=== PATIENT | male | born 1960 | race Caucasian/White ===

== ENCOUNTER 2018-09-30 12:41 | Day surgery (SDC) | payer OTHER ==
[~2018-09-30] VITALS: Ht 170.2 cm; Wt 63.8 kg
[2018-09-30 13:48] VITALS: Ht 170.2 cm; Wt 63.8 kg
[2018-09-30] MEDS ORDERED: AMARYL (13:52)
[2018-09-30] MEDS ORDERED: FERROUS SULFATE (13:52)
[2018-09-30] MEDS ORDERED: METFORMIN (13:52)
[2018-09-30] MEDS ORDERED: LISINOPRIL (13:52)
[2018-09-30] MEDS ORDERED: ASA 81 (13:52)
[2018-09-30 13:54] VITALS: BP 175/84; PULSE 56; RESP 16
[2018-09-30] MEDS ORDERED: MIDAZOLAM 1 MG/ML 2 ML INJ ONE ×2 (15:14)
[2018-09-30] MEDS ORDERED: FENTAnyl 50 MCG/ML VIAL ONE (15:14)
[2018-09-30 15:38] VITALS: BP 155/88; RESP 26
== END 2018-09-30 16:09 | disposition home or self-care (01) ==
LOC: GIL 12:41
PROVIDERS: ATTEND Internal Medicine Gastroenterology
DX: R19.4 Change in bowel habit (principal); D12.5 Benign neoplasm of sigmoid colon; I10 Essential (primary) hypertension; E11.9 Type 2 diabetes mellitus without complications
CPT/HCPCS: 43239; 45385; 82962; 88305; 88312; J2250; J3010; Z7610